=== PATIENT | female | born 2000 | race African-American/Black ===

== ENCOUNTER 2021-03-13 08:25 | Emergency (ER) | payer OTHER, SELFPAY ==
[2021-03-13 08:51] VITALS: BP 110/70; PULSE 86; RESP 18; TEMP 36.4; O2SAT 100
--- NOTE | 2021-03-13 10:29 | ED.EYEPROB ---
HPI - Eye Problem General Chief complaint: Eye Problems Stated complaint: R eye pain Time Seen by Provider: 03/13/21 09:58 Source: patient History of Present Illness HPI Narrative: Patient presents with right arm pain. Patient reports she was playing with her child when the child scratched her leg. She monitor her symptoms at home however she is having increasing pain today blurry vision and tearing this in her right eyes so she wanted come to the ER for evaluation. She reports she has a foreign body sensation in her eye. Denies any purulent discharge denies any bloody discharge. She reports her vision is blurry. Feels like bright lights makes her pain worse. Patient denies contact lens use Related Data Allergies Allergy/AdvReac Type Severity Reaction Status Date / Time No Known Allergies Allergy Verified 03/13/21 10:34 Review of Systems Review of Systems: CONSTITUTIONAL: Denies fever, chills, or sweats. EYES: Reports clear drainage with pain to the right eye and foreign body sensation ENT: Denies rhinorrhea, congestion, sore throat, or otalgia. CARDIOVASCULAR: Denies chest pain, palpitations, or edema. RESPIRATORY: Denies cough or dyspnea. GASTROINTESTINAL: Denies abdominal pain, nausea, vomiting, or diarrhea. GENITOURINARY: Denies dysuria or hematuria. SKIN: Denies rash or itching. MUSCULOSKELETAL: Denies back pain, joint pain, or myalgia. NEUROLOGIC: Denies headache, numbness, dizziness, or weakness. PSYCHIATRIC: Denies anxiety or depression. PMFSH Past Medical History Medical History Patient denies significant medical history Social History Social History Substance use: never Exam Narrative: GENERAL: Well-appearing, well-nourished, and in no acute distress. HEAD: Normocephalic, atraumatic. EYES: PERRLA and EOMI. diffuse conjunctival injection on the right side. Patient symptoms resolved with Alcaine administration there is fluorescein uptake at the 4 o'clock position overlying the visual field. No ulcerations appreciated anterior chamber is quiet no Mare sign ENT: Nares clear, no rhinorrhea or epistaxis. Mucous membranes moist. NECK: Supple. No masses. No JVD EXTREMITIES: Normal range of motion. No edema. SKIN: Warm, dry, no rash. NEURO: No focal deficits. Alert and oriented x3. PSYCH: Normal mood and affect. Course Vital Signs Vital signs: Vital Signs Temperature 36.4 C L 03/13/21 08:51 Pulse Rate 86 03/13/21 08:51 Respiratory Rate 18 03/13/21 08:51 Blood Pressure 110/70 03/13/21 08:51 Pulse Oximetry 100 03/13/21 08:51 Temperature 36.4 C L 03/13/21 08:51 Pulse Rate 86 03/13/21 08:51 Respiratory Rate 18 03/13/21 08:51 Blood Pressure 110/70 03/13/21 08:51 Pulse Oximetry 100 03/13/21 08:51 MDM - Eye Problem MDM Narrative Medical decision making narrative: H&P as above, vss, pt looks clinically well, exam fluorescein uptake in the right eye,labs/img considered, symptomatic relief available as needed, symptoms improved with Alcaine on reevaluation pt continues to looks clinically well. Suspect corneal abrasion, dns corneal ulcer open globe iritis. plan to tx/monitor as op w/ pcm f/u findings/plan discussed with pt, pt agree/comfortable with plan, return precautions given Discharge Plan Discharge Clinical Impression: Corneal abrasion Qualifiers: Encounter type: initial encounter Laterality: right Qualified Code(s): S05.01XA - Injury of conjunctiva and corneal abrasion without foreign body, right eye, initial encounter Patient Disposition: Home, Self-Care Condition: Improved Instructions: Antibiotic Form Additional Instructions: Please return if your symptoms worsen or fail to improve. If you develop a fever, can not eat/drink anything or if you have any other concerns. Prescriptions: New polymyxin B sulf-trimethoprim 10,000 unit- 1 mg/mL drops
[2021-03-13] MEDS: FLUORESCEIN SOD 1 MG/STRIP (10:35)
[2021-03-13] MEDS: DACRIOSE EYE IRRIGATION 118 ML BOTTLE (10:36)
[2021-03-13] MEDS: TETRACAINE HCL 0.5% OPHTH SOLN 4 ML BTL 1 DROP (10:36)
== END 2021-03-13 11:09 | disposition home or self-care (01) ==
PROVIDERS: Emergency Provider Emergency Medicine
DX: S05.01XA Injury of conjunctiva and corneal abrasion without foreign body, right eye, initial encounter (principal); X58.XXXA Exposure to other specified factors, initial encounter
CPT/HCPCS: 99283; A9270